=== PATIENT | male | born 1970 | race Caucasian/White ===

== ENCOUNTER 2019-07-13 07:41 | Emergency (ER) | payer OTHER ==
[2019-07-13 07:57] VITALS: BP 128/77
[2019-07-13] MEDS ORDERED: Tetan/Diph/Pertus SYR(Tdap)* 0.5 ML SYR(BOOSTRIX) use SYR IM ONE (08:08)
--- NOTE | 2019-07-13 08:08 | UC ---
Laceration HPI - HPI Summary HPI Summary: 48-year-old male who was using a sawsall yesterday and as he was cutting through a pipe saws all hit his left wrist causing a very small donta in the skin. Unsure of his last tetanus immunization. He states yesterday it was quite swollen and he thought maybe he had broken it however today the redness and pain and swelling is much better. He also dropped a small pot of water on his left great toe 5 days ago causing some bleeding under the nail and bruising and swelling however that has improved. He states his sent him here to have that looked at as well. - History Of Current Complaint Chief Complaint: UCTrauma Stated Complaint: WRIST INJURY Time Seen by Provider: 07/13/19 08:08 Hx Obtained From: Patient Laceration Location: Wrist Mechanism Of Injury: Sharp Trauma Onset/Duration: Sudden Onset Severity: Mild Pain Intensity: 8 Aggravating Factors: Nothing - Allergies/Home Medications Allergies/Adverse Reactions: Allergies Allergy/AdvReac Type Severity Reaction Status Date / Time diphenhydramine Allergy Rash Verified 07/13/19 07:57 [From Benadryl] Home Medications: Home Medications Ibuprofen 800 mg PO ONCE 07/13/19 [History Confirmed 07/13/19] PMH/Surg Hx/FS Hx/Imm Hx Previously Healthy: Yes - Surgical History Surgical History: Yes Surgery Procedure, Year, and Place: left rotator cuff repair - Family History Known Family History: Positive: Non-Contributory - Social History Alcohol Use: Occasionally Substance Use Type: None Smoking Status (MU): Never Smoked Tobacco Review of Systems All Other Systems Reviewed And Are Negative: Yes Skin: Positive: Other - Small cut in left wrist with erythema. Left great toe is mildly erythematous with a subungual hematoma present. States this is much improved from of last week when he injured it. Is Patient Immunocompromised?: No Physical Exam Triage Information Reviewed: Yes Appearance: Well-Appearing, No Pain Distress, Well-Nourished Vital Signs: Initial Vital Signs Temp 99 F 07/13/19 07:50 Pulse 63 07/13/19 07:50 Resp 18 07/13/19 07:50 BP 128/77 07/13/19 07:50 Pulse Ox 98 07/13/19 07:50 Vital Signs Reviewed: Yes Musculoskeletal: Positive: Strength Intact, ROM Intact, Other: - Mild tenderness on palpation left wrist and minimal tenderness of left great toe. Good peripheral pulses neuro sensation capillary refill, full range of motion, good finger strength to flexion extension against resistance. Toes have full range of motion as well good peripheral pulses, incision and capillary refill. Neurological: Positive: Alert, Muscle Tone Normal Psychological Exam: Normal Skin: Positive: Other - Left great toe has a small subungual hematoma and minimal erythema at the base of it with a small bruise. The left wrist has a small donta in the skin surrounded by erythema with minimal tenderness on palpation. Minimal swelling is present as well. Laceration Course/Dx - Course/Dx Course Of Treatment: X-ray left wrist: Negative X-ray left great toe: Negative The mild redness to the patient's left wrist area has much improved today and it 's not excessively warm to touch therefore I think this may be turning into a bruise as opposed to a cellulitis. I advised the patient he could wait 24 hours before starting the antibiotic and if it's no worse and if it starts turning into a bruise then he does not need the antibiotic. The patient is agreeable to this plan of action. - Diagnosis Provider Diagnosis: Laceration of left wrist, Subungual hematoma of great toe of left foot, Cellulitis of left wrist Discharge ED - Sign-Out/Discharge Documenting (check all that apply): Patient Departure All imaging exams completed and their final reports reviewed: Yes - Discharge Plan Condition: Good Disposition: HOME Prescriptions: cephALEXin [Keflex] 500 mg PO TID 10 Days #30 capsule Patient Education Materials: Subungual Hematoma (ED), Cellulitis (DC) Referrals: Duncan Rao MD [Primary Care Provider] - Additional Instructions: You were given a Tdap tetanus immunization which is good for 8-10 years. Take the antibiotic for the full 10 days. Follow-up with your primary care provider if no improvement or if worsening symptoms over the next few days. - Billing Disposition and Condition Condition: GOOD Disposition: Home
== END 2019-07-13 08:59 | disposition home or self-care (01) ==
LOC: UCEAST 07:41
DX: S61.512A Laceration without foreign body of left wrist, initial encounter (principal); W29.8XXA Contact with other powered hand tools and household machinery, initial encounter; S90.112A Contusion of left great toe without damage to nail, initial encounter; W20.8XXA Other cause of strike by thrown, projected or falling object, initial encounter; Y92.9 Unspecified place or not applicable; L03.114 Cellulitis of left upper limb; Z23 Encounter for immunization
CPT/HCPCS: 90471; 90715; 99202; G0463